=== PATIENT | female | born 1995 | race Caucasian/White ===

== ENCOUNTER 2018-01-09 20:04 | Emergency (ER) | payer MEDICAID ==
[2018-01-09 20:29] VITALS: BMI 22.4
[2018-01-09 20:36] VITALS: BP 112/70; PULSE 74; RESP 16; TEMP 98.3; O2SAT 100
--- NOTE | 2018-01-09 20:52 | C.PDOC ---
History Of Present Illness 22-year-old female, presents to the emergency department with complaints of heaviness and numbness to left wrist and elbow. Patient states she was leaning on the flexed arm all day while studying. She also reports pain in left big toe x 4 days for which she was evaluated by a faculty research assistant, who diagnosed her with tendonitis. Patient is taking Motrin at home. Denies any numbness/weakness, or any other associated symptoms. No other complaints at this time. Time Seen by Provider: 01/09/18 20:45 Chief Complaint (Nursing): Finger,Hand,&Wrist History Per: Patient History/Exam Limitations: no limitations Past Medical History Reviewed: Historical Data, Nursing Documentation, Vital Signs Vital Signs: Last Vital Signs Temp 98.3 F 01/09/18 20:31 Pulse 74 01/09/18 20:31 Resp 16 01/09/18 20:31 BP 112/70 01/09/18 20:31 Pulse Ox 100 01/09/18 20:31 Family History: States: No Known Family Hx - Social History Hx Tobacco Use: No Hx Alcohol Use: No Hx Substance Use: No - Immunization History Hx Tetanus Toxoid Vaccination: Yes Hx Influenza Vaccination: Yes Hx Pneumococcal Vaccination: Yes Review Of Systems Constitutional: Negative for: Fever Musculoskeletal: Positive for: Arm Pain, Foot Pain (left toe) Neurological: Negative for: Weakness, Headache, Dizziness Physical Exam - Physical Exam Appears: Non-toxic, No Acute Distress Skin: Warm, Dry, No Rash Head: Atraumatic, Normacephalic Eye(s): bilateral: Normal Inspection Nose: Normal Oral Mucosa: Moist Lips: Normal Appearing Neck: Normal ROM Chest: Symmetrical Extremity: Normal ROM, Tenderness (left lower extremity: first digit), No Calf Tenderness, No Deformity, No Swelling Pulses: Left Radial: Normal, Right Radial: Normal, Left Dorsalis Pedis: Normal, Right Dorsalis Pedis: Normal Neurological/Psych: Oriented x3, Normal Speech, Normal Motor, Normal Sensation ED Course And Treatment O2 Sat by Pulse Oximetry: 100 Pulse Ox Interpretation: Normal (RA) Disposition Counseled Patient/Family Regarding: Diagnosis, Need For Followup - Disposition Referrals: Zayra Garcia MD [Staff Provider] - Disposition: HOME/ ROUTINE Disposition Time: 21:28 Condition: STABLE Additional Instructions: FOLLOW UP WITH YOUR PMD AND GLASS SETTER ON THURSDAY FOR RE-EVALUATION. IF SYMPTOMS GET WORSE OR ANY NEW CONCERNING SYMPTOMS DEVELOP RETURN TO ED. Instructions: Neuropathic Pain, Tendonitis (DC) Forms: [facility] (Stateless) - Clinical Impression Clinical Impression: Neuralgia, Toe tendinitis - Scribe Statement The provider has reviewed the documentation as recorded by the Scribe (Luisa Price) All medical record entries made by the Scribe were at my direction and personally dictated by me. I have reviewed the chart and agree that the record accurately reflects my personal performance of the history, physical exam, medical decision making, and the department course for this patient. I have also personally directed, reviewed, and agree with the discharge instructions and disposition.
== END 2018-01-09 22:04 | disposition home or self-care (01) ==
LOC: C.ER 20:04
DX: M79.2 Neuralgia and neuritis, unspecified (principal); M77.9 Enthesopathy, unspecified